=== PATIENT | male | born 1995 | race Caucasian/White ===

== ENCOUNTER 2017-11-09 07:33 | Emergency (ER) | payer BC ==
[~2017-11-09] VITALS: Ht 185.4 cm; Wt 90.7 kg
[~2017-11-09 07:33] MED LIST: BUSP10TA3 PO; CLON0.5T4 PO
[2017-11-09 07:37] VITALS: BP_SYST 123
[2017-11-09 08:16] LABS: EOSINOPHILS # (AUTO) 0.1 K/uL (0.0-0.4); EOSINOPHILS % (AUTO) 0.9 % (0.0-4.0); HEMATOCRIT 47.1 % (36-54); HEMOGLOBIN 16.3 g/dL (14.0-18.0); LYMPHOCYTES # (AUTO) 2.3 K/uL (1.0-5.5); LYMPHOCYTES % (AUTO) 14.9 % (20.5-51.5); MEAN CORPUSCULAR HEMOGLOBIN 31 pg (27-31); MEAN CORPUSCULAR HGB CONC 35 % (32-36); MEAN CORPUSCULAR VOLUME 91 fL (79.0-98.0); MONOCYTES # (AUTO) 1.2 K/uL (0.0-1.0); MONOCYTES % (AUTO) 8.1 % (1.7-9.3); PLATELET COUNT (AUTO) 202 K/uL (130-430); RED BLOOD CELL COUNT(AUTO) 5.19 MIL/uL (4.2-6.2); RED CELL DISTRIBUTION WIDTH 12.5 % (9.0-15.0); WHITE BLOOD COUNT (AUTO) 15.4 K/uL (4.5-11.0)
[2017-11-09 08:18] LABS: NEUTROPHILS # (AUTO) 11.8 K/uL (1.8-7.7); NEUTROPHILS % (AUTO) 76.1 % (40.0-70.0)
[2017-11-09] MEDS ORDERED: KETOROLAC TROMETHAMINE 60 MG/2 ML VIAL IM ONE (08:30)
[2017-11-09 08:33] LABS: ALBUMIN 3.8 g/dL (3.4-4.8); CREATININE 1.17 mg/dL (0.55-1.30); POTASSIUM 4.1 mmol/L (3.5-5.1); TOTAL BILIRUBIN 1.8 mg/dL (0.0-1.0)
[2017-11-09 08:45] VITALS: BP_SYST 120
== END 2017-11-09 08:45 | disposition home or self-care (01) ==
LOC: SED 07:33
DX: J02.9 Acute pharyngitis, unspecified (principal); F17.210 Nicotine dependence, cigarettes, uncomplicated
CPT/HCPCS: 36415; 80053; 85025; 86403; 87081; 96372; 99284; J1885

== ENCOUNTER 2018-01-27 18:01 | Emergency (ER) | payer BC ==
[~2018-01-27] VITALS: Ht 185.4 cm; Wt 86.2 kg
[2018-01-27 18:01] VITALS: BP_SYST 117
[~2018-01-27 18:01] MED LIST changes: +CLON0.5T12 PO; -CLON0.5T4 PO
[2018-01-27] MEDS ORDERED: KETOROLAC TROMETHAMINE 60 MG/2 ML VIAL IM ONE (19:15)
[2018-01-27 20:10] VITALS: BP_SYST 119
== END 2018-01-27 20:10 | disposition home or self-care (01) ==
LOC: SED 18:01
DX: S63.502A Unspecified sprain of left wrist, initial encounter (principal); S49.91XA Unspecified injury of right shoulder and upper arm, initial encounter; S09.90XA Unspecified injury of head, initial encounter; F41.9 Anxiety disorder, unspecified; F32.9 Major depressive disorder, single episode, unspecified; V00.131A Fall from skateboard, initial encounter; Y93.89 Activity, other specified; Y92.89 Other specified places as the place of occurrence of the external cause; Y99.8 Other external cause status
CPT/HCPCS: 73030; 96372; 99284; J1885